=== PATIENT | male | born 1980 | race African-American/Black ===

== ENCOUNTER 2016-12-18 13:50 | Emergency (ER) | payer OTHER, BC ==
[~2016-12-18] VITALS: Ht 188 cm; Wt 90.7 kg
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
== END 2016-12-18 17:00 | disposition home or self-care (01) ==
LOC: CFTX 13:50 → CED 13:50 → CFTX 14:56
DX: S33.5XXA Sprain of ligaments of lumbar spine, initial encounter (principal); S70.02XA Contusion of left hip, initial encounter; V43.52XA Car driver injured in collision with other type car in traffic accident, initial encounter
CPT/HCPCS: 72100; 73502; 99283